=== PATIENT | male | born 1985 | race African-American/Black ===

== ENCOUNTER 2016-05-12 17:50 | Emergency (ER) | payer OTHER ==
[~2016-05-12] VITALS: Ht 182.9 cm; Wt 70.8 kg
[~2016-05-12 17:50] MED LIST: FLAGYL500 MG ORAL; LEVAQUIN250 M1 ORAL; LEVAQUIN500 MG ORAL; METRONIDAZOLE500 MG ORAL; NKM; TAMIFLU75 MG ORAL; ZITHROMAX250 MG ORAL
[2016-05-12 18:24] VITALS: BP 146/76
[2016-05-12] MEDS ORDERED: Lidocaine 2% 20mg/ml/Epi 0.005mg/ml 20ml vial ONE (18:47)
--- NOTE | 2016-05-12 18:48 | Emergency Room Report ---
History of Present Illness General Chief Complaint: Skin Rash/Abscess Source: Patient Present Illness HPI 31-year-old male presents emergency department complaining of pain and swelling to localized area of the left anterior thigh and the left posterior thigh x4 days denies nausea vomiting fevers or chills. Patient reports history of abscesses in the past. Patient states he has allergy to Bactrim. Denies CP, Palpitations, LOC, AMS, dizziness, Changes in Vision, Sensation, paresthesias, or a sudden severe headache. Pt states he is UTD with Tetanus, reports hx of HIV. Pt. denies abdominal pain, other lesions, difficulty breathing, or other symptoms. Allergies: Coded Allergies: No Known Allergies (Unverified , 03/21/13) Patient History Past Medical History: see triage record Past Surgical History: none Pertinent Family History: none Immunizations: UTD Reviewed Nursing Documentation: PMH: Agreed, PSxH: Agreed Nursing Documentation-PMH Hx Cancer: No Hx Gastrointestinal Problems: No Hx Neurological Problems: No Review of Systems All Other Systems: negative except mentioned in HPI Physical Exam Vital Signs Date Time Temp Pulse Resp B/P Pulse Ox O2 Delivery O2 Flow Rate FiO2 05/12/16 18:19 98.4 96 16 146/76 100 Room Air Sp02 EP Interpretation: reviewed, normal General Appearance: no apparent distress, alert, GCS 15, non-toxic Head: normocephalic, atraumatic Eyes: bilateral eye PERRL, bilateral eye normal inspection ENT: hearing grossly normal, normal pharynx, no angioedema, normal voice Neck: full range of motion, supple/symm/no masses Respiratory: chest non-tender, lungs clear, normal breath sounds, speaking full sentences Cardiovascular #1: regular rate, rhythm, no edema Gastrointestinal: non tender, soft, no guarding, no rebound Rectal: deferred Genitourinary: normal inspection, no CVA tenderness Musculoskeletal: back normal, gait/station normal, normal range of motion, non- tender, no calf tenderness Neurologic: alert, oriented x3, responsive, motor strength/tone normal, sensory intact, speech normal Psychiatric: judgement/insight normal, memory normal, mood/affect normal, no suicidal/homicidal ideation Skin: normal color, no rash, warm/dry, well hydrated, other - two abscesses each 0.8cm in size on on the left anterior thigh, and one on the posterior right thigh with mild surrounding erythema, and increased temperature to palpation, fluctuance palpated, severe TTP. Lymphatic: no adenopathy Medical Decision Making PA Attestation Dr. Butler is my supervising Physician whom patient management has been discussed with. Diagnostic Impression: Primary Impression: Abscess ER Course 31-year-old male presents emergency department complaining of pain and swelling to localized area of the left anterior thigh and the left posterior thigh x4 days denies nausea vomiting fevers or chills. Patient reports history of abscesses in the past. Patient states he has allergy to Bactrim. Pt states he is UTD with tetanus. hx of HIV. Ddx considered but are not limited to cellulitis, abscess, cystic acne, necrotizing fasciitis, insect bite. Vital signs: are WNL, pt. is afebrile H&PE are most consistent with two abscesses each 0.8cm in size on on the left anterior thigh, and one on the posterior right thigh with mild surrounding erythema, and increased temperature to palpation, fluctuance palpated, severe TTP. ORDERS: none required at this time, the diagnosis is clinical ED INTERVENTIONS: -I & D.---- He declined -5mg [place]ington PO for Pain - Discussed with patient ideally incision and drainage is recommended and that he would need to return with worsening of symptoms. Patient verbalizes his understanding and agreement he continues to not want to have incision and drainage performed. DISCHARGE: At this time pt. is stable for d/c to home. Will provide printed patient care instructions, and any necessary prescriptions. Care plan and follow up instructions have been discussed with the patient prior to discharge. Last Vital Signs Date Time Temp Pulse Resp B/P Pulse Ox O2 Delivery O2 Flow Rate FiO2 05/12/16 18:24 98.4 96 16 146/76 100 Room Air Disposition: HOME, SELF-CARE Condition: Stable Scripts Doxycycline Hyclate* (VIBRAMYCIN*) 100 Mg Capsule 100 MG ORAL EVERY 12 HOURS for 7 Days, #14 CAP 0 Refills Prov: Oliva Tony 05/12/16 Patient Instructions: Abscess Additional Instructions: Take medications as directed. Follow up with PCP in 3-5 days Return sooner to ED if new symptoms occur, or current symptoms become worse. - Please note that this Emergency Department Report was dictated using [employer] administrator technology software, occasionally this can lead to erroneous entry secondary to interpretation by the dictation equipment. Oliva Tony May 12, 2016 18:48
[2016-05-12] MEDS ORDERED: Lidocaine 1% 10mg/ml/Epi 0.005mg/ml 30ml vial INJ ONE (19:00)
[2016-05-12] MEDS ORDERED: Norco 5mg/325mg tab ORAL ONE (19:15)
[2016-05-12] MEDS ORDERED: VIBRAMYCIN100 MG ORAL (19:23)
[2016-05-12 19:37] VITALS: BP 130/71
== END 2016-05-12 19:39 | disposition home or self-care (01) ==
LOC: EMR 19:15
DX: L02.416 Cutaneous abscess of left lower limb (principal)
CPT/HCPCS: 99283

== ENCOUNTER 2016-06-04 17:17 | Emergency (ER) | payer OTHER ==
[~2016-06-04] VITALS: Ht 182.9 cm; Wt 70.3 kg
[~2016-06-04 17:17] MED LIST changes: +VIBRAMYCIN100 MG ORAL
[2016-06-04] MEDS ORDERED: Dicyclomine HCl 10mg/5ml oral soln ORAL ONE (17:30)
--- NOTE | 2016-06-04 17:45 | Emergency Room Report ---
History of Present Illness General Chief Complaint: Diarrhea Source: Patient Present Illness HPI 31-year-old male presents emergency department complaining of continued diarrhea x5 days. Patient reports that initially on days 1-3 he has nausea and vomiting however those symptoms have resolved but she now has diarrhea. Patient reports intermittent dizziness and states his lips are very chapped, denies rashes. Patient states he had antibiotic use last month. but did not have symptoms until almost three weeks after. Denies blood in the vomit or stool. denies abdominal pain at this time. states cramping pain just prior to BM 's that resolve after BM. Reports watery diarrhea. Denies CP, Palpitations, LOC, AMS, dizziness, Changes in Vision, Sensation, paresthesias, or a sudden severe headache. Allergies: Coded Allergies: No Known Allergies (Unverified , 03/21/13) Patient History Past Medical History: see triage record, HIV Past Surgical History: none Pertinent Family History: none Immunizations: UTD Reviewed Nursing Documentation: PMH: Agreed, PSxH: Agreed Nursing Documentation-PMH Past Medical History: No History, Except For Hx Cancer: No Hx Gastrointestinal Problems: No Hx Neurological Problems: No Review of Systems All Other Systems: negative except mentioned in HPI Physical Exam Vital Signs Date Time Temp Pulse Resp B/P Pulse Ox O2 Delivery O2 Flow Rate FiO2 06/04/16 17:26 98.1 106 14 109/68 96 Room Air Sp02 EP Interpretation: reviewed, abnormal - tachycardic at 106 PBM General Appearance: no apparent distress, alert, GCS 15, non-toxic Head: normocephalic, atraumatic Eyes: bilateral eye PERRL, bilateral eye normal inspection ENT: hearing grossly normal, normal pharynx, no angioedema, normal voice Neck: full range of motion, supple/symm/no masses Respiratory: lungs clear, normal breath sounds, speaking full sentences Cardiovascular #1: regular rate, rhythm, no edema Gastrointestinal: normal bowel sounds - hyperactive bowel sounds in all 4 quadrants, non tender, soft, no mass, non-distended, no guarding, no rebound, other - Negative Pickett signs, Negative MacBurney's sign, Negative Rosvigns Sign, Negative Psoas, No Peritoneal signs. Rectal: deferred Genitourinary: normal inspection, no CVA tenderness Musculoskeletal: back normal, gait/station normal, normal range of motion Neurologic: alert, oriented x3, responsive, motor strength/tone normal, sensory intact, speech normal Psychiatric: judgement/insight normal, memory normal, mood/affect normal, no suicidal/homicidal ideation Skin: normal color, no rash, warm/dry, well hydrated Lymphatic: no adenopathy Medical Decision Making PA Attestation Dr. Lawrence is my supervising Physician whom patient management has been discussed with. Diagnostic Impression: Primary Impression: Dehydration, mild Additional Impression: Diarrhea in adult patient ER Course 31-year-old male presents emergency department complaining of continued diarrhea x5 days. Patient reports that initially on days 1-3 he has nausea and vomiting however those symptoms have resolved but she now has diarrhea. Patient reports intermittent dizziness and states his lips are very chapped. Patient states he had antibiotic use last month. but did not have symptoms until almost three weeks after. Denies blood in the vomit or stool. denies abdominal pain at this time. states cramping pain just prior to BM's that resolve after BM. denies profuse watery diarrhea. Ddx considered but are not limited to GE, colitis, acute appy, SBO, * Vital signs: pt. is afebrile, H&PE are most consistent with GE and hypovolemia ORDERS: - Orhtostatic VS: pt. HR went from 86 laying to 106 standing. -CBC: reduced WBC's -BMP: low glucose of 68 ED INTERVENTIONS: -1000 NS BOLUS IV -10mg Bentyl PO. - pt. able to tolerate oral fluids, states he currently is not having abdominal pain. d/w pt. results of labs. d/w pt. to follow up with PCP, or to Return to ED with worsening of symptoms DISCHARGE: At this time pt. is stable for d/c to home. Will provide printed patient care instructions, and any necessary prescriptions. Care plan and follow up instructions have been discussed with the patient prior to discharge. Labs Test 06/04/16 18:30 White Blood Count 3.4 K/UL (4.8-10.8) Red Blood Count 5.17 M/UL (4.70-6.10) Hemoglobin 13.1 G/DL (14.2-18.0) Hematocrit 43.0 % (42.0-52.0) Mean Corpuscular Volume 83 FL (80-99) Mean Corpuscular Hemoglobin 25.4 PG (27.0-31.0) Mean Corpuscular Hemoglobin Concent 30.5 G/DL (32.0-36.0) Red Cell Distribution Width 14.9 % (11.6-14.8) Platelet Count 168 K/UL (150-450) Mean Platelet Volume 7.1 FL (6.5-10.1) Neutrophils (%) (Auto) 60.7 % (45.0-75.0) Lymphocytes (%) (Auto) 23.2 % (20.0-45.0) Monocytes (%) (Auto) 12.7 % (1.0-10.0) Eosinophils (%) (Auto) 2.5 % (0.0-3.0) Basophils (%) (Auto) 0.9 % (0.0-2.0) Sodium Level 137 mEQ/L (135-145) Potassium Level 3.4 mEQ/L (3.4-4.9) Chloride Level 101 mEQ/L (98-107) Carbon Dioxide Level 27 mEQ/L (20-30) Anion Gap 9 (5-15) Blood Urea Nitrogen 10 mg/dL (7-23) Creatinine 1.2 mg/dL (0.7-1.2) Estimat Glomerular Filtration Rate > 60 mL/min (>60) Glucose Level 68 mg/dL (74-106) Calcium Level 7.9 mg/dL (8.6-10.2) Last Vital Signs Date Time Temp Pulse Resp B/P Pulse Ox O2 Delivery O2 Flow Rate FiO2 06/04/16 17:26 98.1 106 14 109/68 96 Room Air Disposition: HOME, SELF-CARE Condition: Stable Scripts Dicyclomine Hcl* (BENTYL*) 10 Mg Capsule 10 MG ORAL FOUR TIMES A DAY for 5 Days, #20 CAP Prov: Oliva Tony 06/04/16 Patient Instructions: Diarrhea, Adult Additional Instructions: Take medications as directed. Follow up with PCP in 3 days Return sooner to ED if new symptoms occur, or current symptoms become worse. - Please note that this Emergency Department Report was dictated using [employer] Communications[employer] technician technology software, occasionally this can lead to erroneous entry secondary to interpretation by the dictation equipment. Oliva Tony Jun 04, 2016 17:45
[2016-06-04 18:15] VITALS: BP_SYST 114; BP_SYST 115; BP_SYST 117; BP_DIAS 74; BP_DIAS 77
[2016-06-04 18:35] VITALS: BP 117/77
[2016-06-04 18:46] LABS: MEAN CORPUSCULAR HEMOGLOBIN 25.4 PG (27.0-31.0); MEAN CORPUSCULAR HGB CONC 30.5 G/DL (32.0-36.0); MEAN CORPUSCULAR VOLUME 83 FL (80-99); MEAN PLATELET VOLUME 7.1 FL (6.5-10.1); PLATELET COUNT 168 K/UL (150-450); RED BLOOD COUNT 5.17 M/UL (4.70-6.10); RED CELL DISTRIBUTION WIDTH 14.9 % (11.6-14.8); WHITE BLOOD COUNT 3.4 K/UL (4.8-10.8)
[2016-06-04 18:49] LABS: NEUTROPHILS % (AUTO) 60.7 % (45.0-75.0)
[2016-06-04 18:50] LABS: BASOPHILS % (AUTO) 0.9 % (0.0-2.0); EOSINOPHILS % (AUTO) 2.5 % (0.0-3.0); LYMPHOCYTES % (AUTO) 23.2 % (20.0-45.0); MONOCYTES % (AUTO) 12.7 % (1.0-10.0)
[2016-06-04 19:00] LABS: ANION GAP 9 (5-15); CALCIUM 7.9 mg/dL (8.6-10.2); CARBON DIOXIDE 27 mEQ/L (20-30); CHLORIDE 101 mEQ/L (98-107); CREATININE 1.2 mg/dL (0.7-1.2); GLOMERULAR FILTRATION RATE > 60 mL/min (>60); HEMOLYSIS 2; POTASSIUM 3.4 mEQ/L (3.4-4.9); SODIUM 137 mEQ/L (135-145)
[2016-06-04] MEDS ORDERED: BENTYL10 MG ORAL (19:27)
[2016-06-04 20:01] VITALS: BP 114/75
== END 2016-06-04 20:01 | disposition home or self-care (01) ==
LOC: EMR 18:03
DX: R19.7 Diarrhea, unspecified (principal); E86.0 Dehydration; R42 Dizziness and giddiness
CPT/HCPCS: 36415; 80048; 85025; 96360

== ENCOUNTER 2016-06-21 13:55 | Emergency (ER) | payer OTHER ==
[~2016-06-21] VITALS: Ht 182.9 cm; Wt 70.3 kg
[2016-06-21] VITALS (7 sets, daily range): BP systolic 98–122; BP diastolic 61–84
[~2016-06-21 13:55] MED LIST changes: +BENTYL10 MG ORAL
--- NOTE | 2016-06-21 14:35 | Emergency Room Report ---
History of Present Illness General Chief Complaint: Diarrhea Source: Patient (Oliva Tony) Present Illness HPI 31-year-old male presents emergency department complaining of multiple episodes daily of watery diarrhea times one month and intermittent abdominal cramping. Patient denies nausea or vomiting. Patient has been taking anti-spasmodics after previous evaluation here in the emergency department 3 weeks ago. he has a history of HIV and states that he needs to change medications. Patient has not followed up with PCP since having blood draw and states it is a new clinic. he reports fatigue, intermittent dizziness, and lethargy as one month. Patient denies fevers or chills. Since states that on the last few bowel movements he has noted some bright red blood and small amounts. Patient denies black tarry stools. he reports history of GI bleed and infectious diarrhea, denies taking blood thinning medications. Patient denies appreciable abdominal tenderness. denies recent travel or ill contacts. reports abx use approximately 2 months ago. Denies CP, Palpitations, LOC, AMS, Changes in Vision, Sensation, paresthesias, or a sudden severe headache. (Oliva Tony) Allergies: Coded Allergies: No Known Allergies (Unverified , 03/21/13) Patient History Past Medical History: see triage record Past Surgical History: none Pertinent Family History: none Reviewed Nursing Documentation: PMH: Agreed, PSxH: Agreed (Oliva Tony) Reviewed Nursing Documentation: PMH: Agreed, PSxH: Agreed (Julien Lawrence) Nursing Documentation-PMH Past Medical History: No History, Except For Hx Cancer: No Hx Gastrointestinal Problems: No Hx Neurological Problems: No (Oliva Tony) Review of Systems All Other Systems: negative except mentioned in HPI (Oliva Tony) Physical Exam Vital Signs Date Time Temp Pulse Resp B/P Pulse Ox O2 Delivery O2 Flow Rate FiO2 06/21/16 13:59 97.3 105 18 125/78 98 Room Air Sp02 EP Interpretation: abnormal - tachycardic at 105 bpm General Appearance: no apparent distress, alert, GCS 15, non-toxic, thin Head: normocephalic, atraumatic Eyes: bilateral eye PERRL, bilateral eye normal inspection ENT: hearing grossly normal, normal pharynx, no angioedema, normal voice Neck: full range of motion, supple/symm/no masses Respiratory: lungs clear, normal breath sounds, speaking full sentences Cardiovascular #1: regular rate, rhythm, no edema Gastrointestinal: non tender, soft, non-distended, no guarding, no rebound, other - hyperactive bowel sounds Rectal: deferred Genitourinary: normal inspection, no CVA tenderness Musculoskeletal: back normal, gait/station normal, normal range of motion, non- tender Neurologic: alert, oriented x3, responsive, motor strength/tone normal, sensory intact, speech normal Psychiatric: judgement/insight normal, memory normal, mood/affect normal Skin: normal color, no rash, warm/dry, well hydrated (Oliva Tony) Medical Decision Making PA Attestation Dr. Lawrence is my supervising Physician whom patient management has been discussed with. (Oliva Tony) Diagnostic Impression: Primary Impression: Dehydration Additional Impressions: Hyponatremia Diarrhea Qualified Codes: A09 - Infectious gastroenteritis and colitis, unspecified ER Course 31-year-old male presents emergency department complaining of multiple episodes daily of watery diarrhea times one month and intermittent abdominal cramping. Patient denies nausea or vomiting. Patient has been taking anti-spasmodics after previous evaluation here in the emergency department 3 weeks ago. he has a history of HIV and states that he needs to change medications. Patient has not followed up with PCP since having blood draw and states it is a new clinic. he reports fatigue, dizziness, and lethargy as one month. Patient denies fevers or chills. Since states that on the last few bowel movements he has noted some bright red blood and small amounts. Patient denies black tarry stools. he denies history of GI bleed, denies taking blood thinning medications. Patient denies appreciable abdominal tenderness. denies recent travel or ill contacts. reports abx use approximately 2 months ago. Ddx considered but are not limited to Diverticulitis, GE, C. Diff, parasitic or opportunistic infection. Vital signs: are WNL, pt. is afebrile H&PE are most consistent with Hypovolemia and diarrhea: dehydration ORDERS: CBC: low WBC at 4.7 -CMP: elevated creatinine 1.7 previous visit two weeks ago was 1.2, low sodium , low CO2 - Lipase : WNL - Stool culture: Pending -C.Diff Toxin : Pending - Stool O & P : Pending - Stool occult blood: Pending ED INTERVENTIONS: -- 1000NS DISPOSITION: at this time pt. will be admitted to Dr. Quinn of [facility], for Dehydration. Dr. Quinn agreed to admit the pt. and to continue pt. care management. Labs Test 06/21/16 14:45 White Blood Count 4.7 K/UL (4.8-10.8) Red Blood Count 6.42 M/UL (4.70-6.10) Hemoglobin 16.8 G/DL (14.2-18.0) Hematocrit 53.6 % (42.0-52.0) Mean Corpuscular Volume 83 FL (80-99) Mean Corpuscular Hemoglobin 26.1 PG (27.0-31.0) Mean Corpuscular Hemoglobin Concent 31.3 G/DL (32.0-36.0) Red Cell Distribution Width 15.0 % (11.6-14.8) Platelet Count 237 K/UL (150-450) Mean Platelet Volume 6.9 FL (6.5-10.1) Neutrophils (%) (Auto) 61.1 % (45.0-75.0) Lymphocytes (%) (Auto) 25.1 % (20.0-45.0) Monocytes (%) (Auto) 12.2 % (1.0-10.0) Eosinophils (%) (Auto) 0.9 % (0.0-3.0) Basophils (%) (Auto) 0.7 % (0.0-2.0) Sodium Level 133 mEQ/L (135-145) Potassium Level 4.1 mEQ/L (3.4-4.9) Chloride Level 98 mEQ/L (98-107) Carbon Dioxide Level 19 mEQ/L (20-30) Anion Gap 16 (5-15) Blood Urea Nitrogen 17 mg/dL (7-23) Creatinine 1.7 mg/dL (0.7-1.2) Estimat Glomerular Filtration Rate 56.8 mL/min (>60) Glucose Level 74 mg/dL (74-106) Calcium Level 8.7 mg/dL (8.6-10.2) Lipase 45 U/L (< 60) (Oliva Tony P.A.) ER Course Patient was noted to have evidence of dehydration. Patient started on IV fluids. The patient appears be moderately dehydrated. Dr. Pj Quinn was contacted for inpatient management Labs Test 06/21/16 14:45 White Blood Count 4.7 K/UL (4.8-10.8) Red Blood Count 6.42 M/UL (4.70-6.10) Hemoglobin 16.8 G/DL (14.2-18.0) Hematocrit 53.6 % (42.0-52.0) Mean Corpuscular Volume 83 FL (80-99) Mean Corpuscular Hemoglobin 26.1 PG (27.0-31.0) Mean Corpuscular Hemoglobin Concent 31.3 G/DL (32.0-36.0) Red Cell Distribution Width 15.0 % (11.6-14.8) Platelet Count 237 K/UL (150-450) Mean Platelet Volume 6.9 FL (6.5-10.1) Neutrophils (%) (Auto) 61.1 % (45.0-75.0) Lymphocytes (%) (Auto) 25.1 % (20.0-45.0) Monocytes (%) (Auto) 12.2 % (1.0-10.0) Eosinophils (%) (Auto) 0.9 % (0.0-3.0) Basophils (%) (Auto) 0.7 % (0.0-2.0) Sodium Level 133 mEQ/L (135-145) Potassium Level 4.1 mEQ/L (3.4-4.9) Chloride Level 98 mEQ/L (98-107) Carbon Dioxide Level 19 mEQ/L (20-30) Anion Gap 16 (5-15) Blood Urea Nitrogen 17 mg/dL (7-23) Creatinine 1.7 mg/dL (0.7-1.2) Estimat Glomerular Filtration Rate 56.8 mL/min (>60) Glucose Level 74 mg/dL (74-106) Calcium Level 8.7 mg/dL (8.6-10.2) Lipase 45 U/L (< 60) (Julien Lawrence) Last Vital Signs Date Time Temp Pulse Resp B/P Pulse Ox O2 Delivery O2 Flow Rate FiO2 06/21/16 13:59 97.3 105 18 125/78 98 Room Air (Oliva Tony P.A.) Status: unchanged (Julien Lawrence) Disposition: XFER SHT-TRM HOSP Condition: Stable Oliva Tony Jun 21, 2016 14:35 Julien Lawrence Jun 21, 2016 17:03
[2016-06-21 14:57] LABS: BASOPHILS % (AUTO) 0.7 % (0.0-2.0); EOSINOPHILS % (AUTO) 0.9 % (0.0-3.0); LYMPHOCYTES % (AUTO) 25.1 % (20.0-45.0); MEAN CORPUSCULAR HEMOGLOBIN 26.1 PG (27.0-31.0); MEAN CORPUSCULAR HGB CONC 31.3 G/DL (32.0-36.0); MEAN CORPUSCULAR VOLUME 83 FL (80-99); MEAN PLATELET VOLUME 6.9 FL (6.5-10.1); MONOCYTES % (AUTO) 12.2 % (1.0-10.0); NEUTROPHILS % (AUTO) 61.1 % (45.0-75.0); PLATELET COUNT 237 K/UL (150-450); RED BLOOD COUNT 6.42 M/UL (4.70-6.10); WHITE BLOOD COUNT 4.7 K/UL (4.8-10.8)
[2016-06-21 15:16] LABS: CALCIUM 8.7 mg/dL (8.6-10.2); CREATININE 1.7 mg/dL (0.7-1.2); GLOMERULAR FILTRATION RATE 56.8 mL/min (>60); POTASSIUM 4.1 mEQ/L (3.4-4.9)
== END 2016-06-21 22:15 | disposition short-term general hospital (02) ==
LOC: EMR 14:30
DX: E86.0 Dehydration (principal); E87.1 Hypo-osmolality and hyponatremia; R19.7 Diarrhea, unspecified
CPT/HCPCS: 36415; 80048; 83690; 85025; 96360

== ENCOUNTER 2017-02-27 12:08 | Emergency (ER) | payer OTHER ==
[~2017-02-27] VITALS: Ht 182.9 cm; Wt 67.1 kg
[2017-02-27] MEDS ORDERED: Fluorescein Strips LEFT EYE ONE (12:45)
[2017-02-27] MEDS ORDERED: traMADol 50mg tab ORAL ONE (12:45)
--- NOTE | 2017-02-27 12:54 | Emergency Room Report ---
History of Present Illness General Chief Complaint: Skin Rash/Abscess Source: Patient Present Illness HPI The patient is a 31-year-old male with a history of HIV presenting for left- sided facial rash which began 2 days prior. he does admit to history of chickenpox. He is unsure of his CD4 count. His pain is a 7/10 burning sensation worse with touch. He denies any radiating pain. He denies any other symptoms including nausea, vomiting, fever, chills, neck pain or stiffness, blurred vision, visual changes, sore throat Allergies: Coded Allergies: No Known Allergies (Unverified , 03/21/13) Patient History Past Medical History: see triage record Pertinent Family History: none Reviewed Nursing Documentation: PMH: Agreed, PSxH: Agreed Nursing Documentation-PMH Past Medical History: No Stated History Hx Cancer: No Hx Gastrointestinal Problems: No Hx Neurological Problems: No Review of Systems All Other Systems: negative except mentioned in HPI Physical Exam Vital Signs Date Time Temp Pulse Resp B/P (MAP) Pulse Ox O2 Delivery O2 Flow Rate FiO2 02/27/17 12:21 98.4 104 18 143/72 100 Room Air Sp02 EP Interpretation: reviewed, normal General Appearance: no apparent distress, alert, GCS 15, non-toxic Head: normocephalic, atraumatic Eyes: bilateral eye normal inspection, bilateral eye PERRL, bilateral eye EOMI , bilateral eye other - No uptake of fluoroscene ENT: normal pharynx, no angioedema, normal voice, uvula midline Neck: full range of motion, supple/symm/no masses Cardiovascular #1: regular rate, rhythm, no edema Musculoskeletal: back normal, gait/station normal, normal range of motion, non- tender Neurologic: alert, oriented x3, responsive, motor strength/tone normal, sensory intact, speech normal Psychiatric: judgement/insight normal, memory normal, mood/affect normal, no suicidal/homicidal ideation Skin: rash - There are papular lesions and pustules in clusters on the L face. Does not cross midline. Involves L forehead, L upper eyelid, and L cheek Lymphatic: no adenopathy Medical Decision Making PA Attestation Dr. Lawrence is my supervising physician. Patient management was discussed with my supervising physician ER Course The patient is a 31-year-old male with a history of HIV presenting for left- sided facial rash which began 2 days prior Ddx considered include but not limited to insect bite, shingles, zoster ophthalmicus, contact dermatitis, eczema, cellulitis PE: afebrile. NAD There are papular lesions and pustules in clusters on the L face. Does not cross midline. Involves L forehead, L upper eyelid, and L cheek. No visible lesions in eye. PERRL. EOMI fluoroscene strip was applied to bottom internal eyelid. UV light was used to assess for increased uptake. None was found. The patient is given antiviral medication and needs to follow up with his primary doctor soon as possible. He was also given strict return precautions including if he notices any change in his vision at all. He understands Last Vital Signs Date Time Temp Pulse Resp B/P (MAP) Pulse Ox O2 Delivery O2 Flow Rate FiO2 02/27/17 12:21 98.4 104 18 143/72 100 Room Air Status: improved Disposition: HOME, SELF-CARE Condition: Improved Scripts Acyclovir* (ZOVIRAX*) 800 Mg Tablet 800 MG ORAL FIVE TIMES A DAY, #50 CAP 0 Refills Prov: ALANIS PINEDA P.A. 02/27/17 Tramadol Hcl* (ULTRAM*) 50 Mg Tablet 50 MG ORAL Q6H Y for For Pain, #10 TAB 0 Refills Prov: ALANIS PINEDA P.A. 02/27/17 ALANIS PINEDA Feb 27, 2017 12:54
[2017-02-27] MEDS ORDERED: ZOVIRAX800 MG ORAL (13:19)
[2017-02-27] MEDS ORDERED: TRAMADOL HCL50 MG ORAL (13:19)
[2017-02-27 13:25] VITALS: BP 137/96
== END 2017-02-27 13:25 | disposition home or self-care (01) ==
LOC: EMR 13:00
DX: R21 Rash and other nonspecific skin eruption (principal)
CPT/HCPCS: 99283

== ENCOUNTER 2017-05-19 09:17 | Emergency (ER) | payer OTHER ==
[~2017-05-19] VITALS: Ht 182.9 cm; Wt 62.6 kg
[~2017-05-19 09:17] MED LIST changes: +TRAMADOL HCL50 MG ORAL; +ZOVIRAX800 MG ORAL
[2017-05-19] MEDS ORDERED: VITAMIN E100 UNI2 ORAL (09:29)
[2017-05-19] MEDS ORDERED: triumeq (09:29)
[2017-05-19] MEDS ORDERED: DAPSONE25 MG ORAL (09:29)
[2017-05-19 09:30] VITALS: BP 123/73
--- NOTE | 2017-05-19 09:50 | Emergency Room Report ---
History of Present Illness General Chief Complaint: Nausea, Vomiting, and Diarrhea Source: Patient, Medical Record Present Illness HPI 32-year-old male, history of HIV, p/w nausea vomiting diarrhea abdominal pain for 4 days. Pt reports n/v, >5 episodes of nbnb vomiting, 4 episodes of watery diarrhea with specks of blood Also associated with generalized abdominal pain, cramping in nature, intermittent. No relieving or exacerbating factors. Denies fever, chills. No hx of abdominal surgeries. No hx of endoscopies/colonoscopies. Patient states that he has HIV, on medication, last CD4 count was drawn within the year which was normal with an undetectable viral load. States that he just got labs drawn again with his doctor, but still waiting for results No recent travel or recent antibiotic use Allergies: Coded Allergies: No Known Allergies (Unverified , 03/21/13) Patient History Past Medical History: see triage record Past Surgical History: none Pertinent Family History: none Reviewed Nursing Documentation: PMH: Agreed, PSxH: Agreed Nursing Documentation-PMH Past Medical History: No History, Except For Hx Cancer: No Hx Gastrointestinal Problems: No Hx Neurological Problems: No Review of Systems All Other Systems: negative except mentioned in HPI Physical Exam Vital Signs Date Time Temp Pulse Resp B/P (MAP) Pulse Ox O2 Delivery O2 Flow Rate FiO2 05/19/17 09:24 98.0 75 18 125/78 98 Room Air 98.1 Sp02 EP Interpretation: reviewed, normal General Appearance: alert, GCS 15, non-toxic, mild distress Head: normocephalic, atraumatic Eyes: bilateral eye normal inspection, bilateral eye PERRL, bilateral eye EOMI ENT: normal ENT inspection, normal pharynx, normal voice, moist mucus membranes Neck: normal inspection, full range of motion, supple Respiratory: normal inspection, lungs clear, normal breath sounds, no respiratory distress, no retraction, no wheezing, speaking full sentences, chest symmetrical Cardiovascular #1: normal inspection, regular rate, rhythm, no edema, normal capillary refill Cardiovascular #2: 2+ radial (R), 2+ radial (L) Gastrointestinal: other - mild generalized tenderness, no guarding or rigidity , not peritoneal, hyperactive bowel sounds, soft abdomen. no rebound. Genitourinary: no CVA tenderness Musculoskeletal: normal inspection, back normal, normal range of motion, non- tender Neurologic: normal inspection, alert, oriented x3, responsive, motor strength/ tone normal, sensory intact, normal gait, speech normal Psychiatric: normal inspection, judgement/insight normal, memory normal Skin: normal inspection, normal color, no rash, warm/dry, well hydrated, normal turgor Medical Decision Making Diagnostic Impression: Primary Impression: Nausea, vomiting, and diarrhea Additional Impression: Asymptomatic microscopic hematuria ER Course 32-year-old male with nausea vomiting diarrhea Differential Diagnosis: Gastritis, gastroenteritis, cholecystitis, appendicitis, diverticulitis, UTI/ pyelo Patient with generalized tenderness, mostly in the epigastric region, no focal right lower quadrant tenderness, will hold imaging for now Plan: Basic labs, ua Zofran, pain control, IVF ER course: Patient has remained stable during ED stay. Pain improved. Repeat abdominal exam is nontender. CT neg Disposition: Patient is to be discharged to home. Patient is instructed to follow up with their primary care doctor within 5 days. Strict return precautions discussed with patient such as fever, chills, worsening/severe abdominal pain, nausea, vomiting, black or bloody stools, which may indicate severe illness. Patient verbalizes understanding and agrees with plan. Please note that this Emergency Department Report was dictated using [employer] stunt performer technology software, occasionally this can lead to erroneous entry secondary to interpretation by the dictation equipment Rhythm Strip EP Interpretation: Yes Rate: 69 Rhythm: NSR, no PVCs, no ectopy Laboratory Tests Test 05/19/17 09:40 05/19/17 09:45 White Blood Count 5.5 K/UL (4.8-10.8) Red Blood Count 5.11 M/UL (4.70-6.10) Hemoglobin 13.8 G/DL (14.2-18.0) L Hematocrit 42.8 % (42.0-52.0) Mean Corpuscular Volume 84 FL (80-99) Mean Corpuscular Hemoglobin 26.9 PG (27.0-31.0) L Mean Corpuscular Hemoglobin Concent 32.1 G/DL (32.0-36.0) Red Cell Distribution Width 14.6 % (11.6-14.8) Platelet Count 205 K/UL (150-450) Mean Platelet Volume 7.2 FL (6.5-10.1) Neutrophils (%) (Auto) 60.1 % (45.0-75.0) Lymphocytes (%) (Auto) 27.7 % (20.0-45.0) Monocytes (%) (Auto) 10.7 % (1.0-10.0) H Eosinophils (%) (Auto) 0.6 % (0.0-3.0) Basophils (%) (Auto) 1.0 % (0.0-2.0) Sodium Level 133 MMOL/L (136-145) L Potassium Level 3.5 MMOL/L (3.5-5.1) Chloride Level 103 MMOL/L (98-107) Carbon Dioxide Level 27 MMOL/L (21-32) Anion Gap 3 mmol/L (5-15) L Blood Urea Nitrogen 9 mg/dL (7-18) Creatinine 1.4 MG/DL (0.55-1.30) H Estimate Glomerular Filtration Rate > 60 mL/min (>60) Glucose Level 75 MG/DL (74-106) Calcium Level 7.9 MG/DL (8.5-10.1) L Total Bilirubin 0.1 MG/DL (0.2-1.0) L Aspartate Amino Transferase (AST) 25 U/L (15-37) Alanine Aminotransferase (ALT) 17 U/L (12-78) Alkaline Phosphatase 105 U/L (46-116) Total Protein 8.8 G/DL (6.4-8.2) H Albumin 2.2 G/DL (3.4-5.0) L Globulin 6.6 g/dL Albumin/Globulin Ratio 0.3 (1.0-2.7) L Lipase 137 U/L (73-393) Urine Color Yellow Urine Appearance Slightly cloudy Urine pH 6 (4.5-8.0) Urine Specific Alexis 1.020 (1.005-1.035) Urine Protein 3+ (NEGATIVE) H Urine Glucose (UA) Negative (NEGATIVE) Urine Ketones 1+ (NEGATIVE) H Urine Occult Blood 5+ (NEGATIVE) H Urine Nitrite Negative (NEGATIVE) Urine Bilirubin Negative (NEGATIVE) Urine Urobilinogen 1 MG/DL (0.0-1.0) H Urine Leukocyte Esterase 1+ (NEGATIVE) H Urine RBC 15-20 /HPF (0 - 0) H Urine WBC 2-4 /HPF (0 - 0) Urine Squamous Epithelial Cells Few /LPF (NONE/OCC) Urine Bacteria Few /HPF (NONE) CT/MRI/US Diagnostic Results CT/MRI/US Diagnostic Results : Imaging Test Ordered: ct abdo pelvis Impression Findings: The gallbladder is contracted and not evaluated well. The kidneys are imaged during arterial phase which is not optimal. There is a suggestion of small cysts within the right mid kidney. These are better demonstrated previously. There is no hydronephrosis. No abnormalities of the liver, spleen or pancreas are appreciated. Stomach mildly distended with particulate matter. No bowel dilatation demonstrated. There is mild distention of the rectum due to feces with a diameter of about 6 to 7 cm. The appendix is not seen. Urinary bladder is unremarkable. There is no free fluid identified. IMPRESSION: No acute findings appreciated. Contracted gallbladder, not well evaluated. Patient probably not NPO as there is food in the stomach. Moderate rectal fecal retention. Right renal cyst, suboptimally evaluated. Last Vital Signs Date Time Temp Pulse Resp B/P (MAP) Pulse Ox O2 Delivery O2 Flow Rate FiO2 05/19/17 09:30 97.5 71 16 123/73 100 Room Air 97.5 Disposition: HOME, SELF-CARE Condition: Improved Referrals: [facility],REFERRING (PCP) Patient Instructions: VOMITING AND DIARRHEA, Nonspecific (Adult) Melani Duque M.D. May 19, 2017 09:50
[2017-05-19 10:14] LABS: APPEARANCE,URINE SLIGHTLY CLOUDY; BILIRUBIN, URINE NEGATIVE (NEGATIVE); GLUCOSE, URINE (UA) NEGATIVE (NEGATIVE); KETONES,URINE 1+ (NEGATIVE); LEUKOCYTE ESTERASE ,URINE 1+ (NEGATIVE); NITRITE,URINE NEGATIVE (NEGATIVE); PH,URINE 6 (4.5-8.0); PROTEIN,URINE 3+ (NEGATIVE); UROBILINOGEN,URINE 1 MG/DL (0.0-1.0)
[2017-05-19 10:15] LABS: COLOR,URINE YELLOW
[2017-05-19 10:17] LABS: EOSINOPHILS % (AUTO) 0.6 % (0.0-3.0); HEMATOCRIT 42.8 % (42.0-52.0); HEMOGLOBIN 13.8 G/DL (14.2-18.0); LYMPHOCYTES % (AUTO) 27.7 % (20.0-45.0); MEAN CORPUSCULAR VOLUME 84 FL (80-99); MONOCYTES % (AUTO) 10.7 % (1.0-10.0); NEUTROPHILS % (AUTO) 60.1 % (45.0-75.0); PLATELET COUNT 205 K/UL (150-450); RED BLOOD COUNT 5.11 M/UL (4.70-6.10); RED CELL DISTRIBUTION WIDTH 14.6 % (11.6-14.8); WHITE BLOOD COUNT 5.5 K/UL (4.8-10.8)
[2017-05-19 10:30] LABS: ANION GAP 3 mmol/L (5-15); BLOOD UREA NITROGEN 9 mg/dL (7-18); CALCIUM 7.9 MG/DL (8.5-10.1); CARBON DIOXIDE 27 MMOL/L (21-32); CHLORIDE 103 MMOL/L (98-107); CREATININE 1.4 MG/DL (0.55-1.30); POTASSIUM 3.5 MMOL/L (3.5-5.1); SODIUM 133 MMOL/L (136-145)
[2017-05-19 10:35] LABS: ALANINE AMINOTRANSFERASE 17 U/L (12-78); ALBUMIN 2.2 G/DL (3.4-5.0); ALBUMIN/GLOBULIN RATIO 0.3 (1.0-2.7); ALKALINE PHOSPHATASE 105 U/L (46-116); ASPARTATE AMINO TRANSFERASE 25 U/L (15-37); BILIRUBIN,TOTAL 0.1 MG/DL (0.2-1.0)
--- NOTE | 2017-05-19 12:49 | Diagnostic Imaging Report ---
Indication: Abdominal pain Technique: Continuous helical transaxial imaging of the abdomen and pelvis was obtained from the lung bases to the pubic symphysis during intravenous contrast administration. Coronal 2-D reformats were also obtained. Study obtained in a Siemens sensation [address] Automatic Exposure Control was utilized. Total Dose length Product (DLP): 573.[address] Dose Index Volume (CTDIvol): 10.99 mGy Comparison: 03/21/2013 Findings: The gallbladder is contracted and not evaluated well. The kidneys are imaged during arterial phase which is not optimal. There is a suggestion of small cysts within the right mid kidney. These are better demonstrated previously. There is no hydronephrosis. No abnormalities of the liver, spleen or pancreas are appreciated. Stomach mildly distended with particulate matter. No bowel dilatation demonstrated. There is mild distention of the rectum due to feces with a diameter of about 6 to 7 cm. The appendix is not seen. Urinary bladder is unremarkable. There is no free fluid identified. IMPRESSION: No acute findings appreciated. Contracted gallbladder, not well evaluated. Patient probably not NPO as there is food in the stomach. Moderate rectal fecal retention. Right renal cyst, suboptimally evaluated. The CT scanner at [facility] is accredited by the [employer] and the scans are performed using dose optimization techniques as appropriate to a performed exam including Automatic Exposure control.
[2017-05-19 13:04] VITALS: BP 131/70
[2017-05-19] MEDS ORDERED: ZOFRAN ODT4 MG ORAL (13:24)
[2017-05-19 13:35] VITALS: BP 117/87
== END 2017-05-19 13:38 | disposition home or self-care (01) ==
LOC: EMR 09:28
DX: R11.2 Nausea with vomiting, unspecified (principal); R19.7 Diarrhea, unspecified; R31.29 Other microscopic hematuria; N28.1 Cyst of kidney, acquired
CPT/HCPCS: 36415; 74177; 80053; 81003; 83690; 85025; 96361; 96374; 99284; J2405; Q9967